=== PATIENT | male | born 1945 | race Caucasian/White ===

== ENCOUNTER 2021-11-05 16:21 | Emergency (ER) | payer MEDICARE ==
[~2021-11-05 16:21] MED LIST: KEFLEX CAP 500500 MG PO; NORCO 5-325 TA1 EACH PO
[2021-11-05 16:49] LABS: HEMOGLOBIN 15.5 gm/dl (14.0-17.5); RED BLOOD COUNT 5.1 M/UL (4.20-5.50); WHITE BLOOD COUNT 6.1 K/UL (4.5-11.0)
[2021-11-05 17:17] LABS: BUN/CREATININE RATIO 18 (0-10)
[2021-11-05] MEDS ORDERED: PAXLOVID 300-11 EACH PO (19:48)
== END 2021-11-05 19:54 | disposition home or self-care (01) ==
LOC: ER1 16:21
PROVIDERS: Physician Assistant
DX: U07.1 COVID-19 (principal); J40 Bronchitis, not specified as acute or chronic; E11.9 Type 2 diabetes mellitus without complications; I11.9 Hypertensive heart disease without heart failure; I25.10 Atherosclerotic heart disease of native coronary artery without angina pectoris; Z95.5 Presence of coronary angioplasty implant and graft
CPT/HCPCS: 71045; 80053; 82550; 82553; 83880; 84484; 85025; 93005; 99285; U0002